=== PATIENT | male | born 1985 | race Caucasian/White ===

== ENCOUNTER 2025-01-06 01:11 | Day surgery (SDC) | payer OTHER, SELFPAY ==
[2024-12-24 14:37] VITALS: BMI 33.9
--- NOTE | 2024-12-24 14:44 | PC.NURSE ---
Patient instructed to bring spinal cord stimulator remote [facility] has started construction of its new state of the art ER which will open Spring 2026. With this, we anticipate parking may be a challenge for some our surgical patients and families. Parking spaces are limited but are available for all Surgical, obstetrics, and ER patients sharing this lot. If you arrive and find you are having a hard time finding a parking space, please note that we understand the challenges, please drive around the hospital and park near Hospital Entrance 1. When you enter this entrance, you can ask a volunteer to direct or take you back to the surgical waiting area to check in. We appreciate everyone?s understanding of these expected challenges while we build for your future. Report to the Outpatient Waiting Room, entrance under the green pavilion located off [address], at time _0630 on date _01/06/25 . Planned Procedure Time: __0830 .? Time changes happen often and if your time is changed the preop area will call you the afternoon before. - You and your visitor will be asked to self-screen and do not enter if you have any COVID symptoms. Please call surgeon if you need to reschedule. - A mask is optional within the hospital at this time. Patients may have clear liquids (water, carbonated beverages, clear teas, apple juice) until 3 hours prior to surgery with a maximum of 20 ounces. - No food from midnight until time of surgery and no smoking, or chewing tobacco (or any form of nicotine). No chewing gum, candy or mints. - Infants may have breast milk until 4 hours before surgery, formula 6 hours prior to surgery. - Children will be allowed to drink immediately following surgery.? If applicable, please bring a bottle or sippy cup to assist with drinking. Juice, water, soda, and popsicles are readily available.? For infants on formula, please bring formula the day of surgery.? Pacifiers are allowed. Take only the following medications with a SIP of water on the morning of surgery: _Lyrica PRN DO NOT STOP ANY OF YOUR OTHER PRESCRIPTION MEDICATIONS PRIOR TO SURGERY EXCEPT THE FOLLOWING Hold all vitamins and supplements for 3 days per anesthesiologist. Medications to discontinue per physician ____N/A Date to take last dose___N/A Please no make-up, nail ivorian, hairspray, perfume, deodorant, or body powder the day of surgery.? No jewelry (including any body piercings) or valuables the day of surgery, leave them at home.? Please take a shower or bath the night before, or the morning of, surgery with an antibacterial soap.? Wear comfortable, loose fitting clothing.? Children are encouraged to wear pajamas. - Jewelry must be removed prior to entering the operating room.? Rings and piercings that are not removed may be cut off. - The hospital will not accept responsibility for valuables.? - Please leave all valuables, including medications, at home the day of surgery. If you are going home after surgery, a licensed scoop driver must drive you home.? - NO public transportation without another adult if you receive anesthesia. - We recommend that an adult stay with you for 24 hours following discharge. - We also recommend that you do not drive, make important decision, drink alcoholic beverages, or take any drugs that were not prescribed by your health care provider for at least 24 hours after your discharge time. For Pediatric surgeries, we recommend two adults accompany the child home. Follow any additional instructions given to you from your surgeon. Telephone instructions given to Ines and asked if any additional questions and then verbalized understanding. Patient advised to call surgeon office or pre surgery nurse liaison [phone] if any additional questions.
[2025-01-06] VITALS (7 sets, daily range): BP systolic 96–127; BP diastolic 57–77; PULSE 50–70; RESP 12–16; TEMP 36.1–36.2; O2SAT 97–100
--- OUTSIDE RECORDS SUMMARY | 2025-01-06 01:14 | XMS_ITS | Clinical Summary ---
Author Organization [facility] Address [address] [place] [address] Care Team Providers Care Cross Tie Cutter Name Role Phone Unavailable Primary Care Provider Unavailabl e Allergies No known active allergies Medications DULoxetine (Cymbalta) 30 mg Capsule, Delayed Release(E.C.) Take 1 Capsule (30 mg) by mouth 2 times daily. 60 Capsule 09/02/2024 Active Encounters Date Type Department Care Team Description 12/31/2024 External Device Data [facility] ABSTRACTION Provider, Abstract 12/30/2024 External Device Data [facility]STRACTION Provider, Abstract 12/23/2024 External Device Data [facility]STRACTION Provider, Abstract from Last 3 Months Social History Tobacco Use Types Packs/Day Years Used Date Smoking Tobacco: Never Assessed Sex and Gender Information Value Date Recorded Sex Assigned at Not on file Legal Sex Male 11:00 AM CDT Gender Identity Not on file Sexual Orientation Not on file Plan of Treatment Health Maintenance Due Date Last Done Comments DTAP/TDAP/TD VACCINES (1 - Tdap) 2003 HEPATITIS B VACCINES (1 of 3 - 19+ 3-dose series) 04/05 HPV VACCINES (1 - 3-dose SCDM series) 2011 INFLUENZA VACCINE (#1) 2024 Insurance [employer] (INTERNAL) [facility] [employer] [facility]
--- OUTSIDE RECORDS SUMMARY | 2025-01-06 01:14 | XMS_ITS | Clinical Summary ---
Author Organization [facility] Address [address] [place] [address] Care Team Providers Care Infrastructure Security Architect Name Role Phone Provider, No Pcp Primary Care Provider Unavailab le Source Comments [facility],non-owned Affiliates and Associated Physician Practices is amultiple site organization consisting of ambulatory clinics and hospital sitesin [place], [place], [place] and [place]. This disclosure is being madepursuant to the Care Everywhere program and may not contain all information available regarding this patient. Last updated 17.[facility] Health Encounters Date Type Department Care Team Description 12/19/2024 Travel 10/10/2024 Travel 10/06/2024 11:12 AM CDT - 10/06/2024 11:59 PM CDT Hospital Encounter [facility] Imaging Services - Radiology [address] [place] [address] Keaton Bond MD Discharge Disposition: Home or Self Care from Last 3 Months Social History Tobacco Use Types Packs/Day Years Used Date Smoking Tobacco: Never Assessed Sex and Gender Information Value Date Recorded Sex Assigned at Not on file Legal Sex Male 11:00 AM CDT Gender Identity Not on file Sexual Orientation Not on file Plan of Treatment Upcoming Encounters Date Type Department Care Team (Late st Contact Info) Description 02/17/2025 12:20 PM DISTRIBUTION COORDINATOR Appointment [facility] Imaging Services - MRI [address] [place] [address] [place] [address] [place] [address] Health Maintenance Due Date Last Done Comments LIPID TESTING 1984 HIV SCREENING 1999 HEPATITIS C SCREENING 04/11/2002 DTAP/TDAP/TD VACCINES (1 - Tdap) 2003 HEPATITIS B VACCINE (1 of 3 - 19+ 3-dose series) 2003 HPV VACCINE (1 - 3-dose SCDM series) 2011 DEPRESSION SCREENING 03/05/2024 COVID-19 VACCINE ( season) 2024 12/16/2020, 11/18/2020, 04/07/2020 INFLUENZA VACCINE (#1) 2024 2, 12/30/2020, 02/12/2020, Additional history exists ZOSTER VACCINE (1 of 2) 2034 HIB VACCINE Aged Out No longer eligi ble based on patient's age to complete this topic MENINGOCOCCAL (Group B) VACCINE SHARED DECISION-MAKING Aged Out No longer eligible based on patient's age to complete this topic MENINGOCOCCAL GROUPS A/C/Y/W VACCINE Aged Out No longer eligible based on patient's age to complete this topic PNEUMOCOCCAL VACCINE Aged Out No long er eligible based on patient's age to complete this topic Procedures Procedure Name Priority Date/Time Associated Diagnosis Comments XR LUMBAR SPINE 2 OR 3VW Routine 10/06/2024 11:36 AM CDT Postlaminectomy syndrome, lumbar region XR THORACIC SPINE 3VW Routine 10/06/2024 11:36 AM CDT Postlaminectomy syndrome, thoracic region from Last 3 Months Results * XR Lumbar Spine 2 or 3Vw (10/06/2024 11:36 AM CDT) Anatomical Region Laterality Modality Spine Computed Radiogr aphy 10/06/2024 1:03 PM CDT Narrative 10/06/2024 1:55 PM CDT PROCEDURE: XR LUMBAR SPINE 2 OR 3VW DATE/TIME OF EXAM: 10/06/2024 11:36 AM CLINICAL INFORMATION: None relevant/not provided if blank. Indication: M96.1: Postlaminectomy syndrome, lumbar region. Additional History: COMPARISON: None. FINDINGS/IMPRESSION: Three views of the lumbar spine show stimulator device overlying the left pelvis. Leads extend into the lumbar spine. Endplate degenerative changes are seen. There is intervertebral disc space narrowing of L5-S1. No fracture is present. Edited by La Dinero on 10/06/2024 1:05 PM > Interpreting Provider: Yordy Higuera MD on 10/06/2024 1:55 PM Procedure Note Yordy Higuera MD - 10/06/2024 PROCEDURE: XR LUMBAR SPINE 2 OR 3VW DATE/TIME OF EXAM: 10/06/2024 11:36 AM CLINICAL INFORMATION: None relevant/not provided if blank. Indication: M96.1: Postlaminectomy syndrome, lumbar region. Additional History: COMPARISON: None. FINDINGS/IMPRESSION: Three views of the lumbar spine show stimulator device overlying theleft pelvis. Leads extend into the lumbar spine. Endplate degenerativechanges are seen. There is intervertebral disc space narrowing of L5-S1. No fracture is present. Edited by La Dinero on 10/06/2024 1:05 PM > Interpreting Provider: Yordy Higuera MD on 10/06/2024 1:55 PM us Keaton Bond MD DIAGNOSTIC IMAGING ORDERAB LES Final Result * XR Thoracic Spine 3Vw (10/06/2024 11:36 AM CDT) Anatomical Region Laterality Modality Spine Computed Radiogr aphy 10/06/2024 1:04 PM CDT Narrative 10/06/2024 1:55 PM CDT PROCEDURE: XR THORACIC SPINE 3VW DATE/TIME OF EXAM: 10/06/2024 11:36 AM INDICATION: M96.1: Postlaminectomy syndrome, thoracic region. Additional History: COMPARISON: None. FINDINGS: Stimulator leads are seen in the thoracic spine. Mild endplate degenerative changes are present. There is no acute fracture or subluxation. Edited by Sadie Julio on 10/06/2024 1:05 PM > Interpreting Provider: Yordy Higuera MD on 10/06/2024 1:55 PM Procedure Note Yordy Higuera MD - 10/06/2024 PROCEDURE: XR THORACIC SPINE 3VW DATE/TIME OF EXAM: 10/06/2024 11:36 AM INDICATION: M96.1: Postlaminectomy syndrome, thoracic region. Additional History: COMPARISON: None. FINDINGS: Stimulator leads are seen in the thoracic spine. Mild endplatedegenerative changes are present. There is no acute fracture or subluxation. Edited by Sadie Julio on 10/06/2024 1:05 PM > Interpreting Provider: Yordy Higuera MD on 10/06/2024 1:55 PM us Keaton Bond MD DIAGNOSTIC IMAGING ORDERAB LES Final Result from Last 3 Months Insurance Care Teams Infrastructure Security Architect Relationship Specialty Start Date End Date Provider, No Pcp PCP - General 10/06/24
--- NOTE | 2025-01-06 06:56 | WPDANESEPPF ---
Anes - Initial Pre Proc Eval Procedure: Operation Date: 01/06/25 08:30 Proposed Procedures p Bilateral Vasectomy - Albert Navarro MD Date/Time: 01/06/25 06:56 Surgeon: Albert Navarro MD Pre Op Diagnosis: desired sterilization Patient Data Age: 39 Gender: M Height: 1.83 m Weight: 120.7 kg Allergies Allergy/AdvReac Type Severity Reaction Status Date / Time latex Allergy Intermediate Hives Verified 12/24/24 14:19 Home Medications ?Medication ?Instructions ?Recorded ?Confirmed ?Type magnesium 250 mg tablet 250 mg PO DAILY 12/24/24 12/24/24 History pregabalin 150 mg capsule (Lyrica) 150 mg PO BID PRN pain 12/24/24 12/24/24 History rizatriptan 10 mg tablet See Rx Instructions PO .COMPLEX 12/24/24 12/24/24 History Patient hx anesthesia problems: none Family hx anesthesia problems: none Results Review: All pre-operative results and documents have been reviewed as part of the pre-operative evaluation. [facility] Social History Social History Smoking packs per day: 1.5 Smoking cigarettes per day: 30.0 Years smoked: 10 Smoking pack-years: 15.00 Smoking status: Former smoker Smoking end date: 03/05/07 Alcohol intake: current Alcohol use details: 1 a month Substance use type: does not use Living arrangements: with family Spiritual care concerns: No Anes - Eval Final PreProcedure Day of Procedure 01/06/25 06:56 Patient weight: obese Heart: regular rate and rhythm Lungs: clear to auscultation Airway: Mallampati scale class II Neurological: alert and oriented Last oral intake: >/= 8 hours ASA classification: II Emergent: no Anesthetic plan: proceed Anesthesia type and monitoring: general LMA and standard monitoring Results Review: All pre-operative results and documents have been reviewed as part of the pre-operative evaluation. Informed Consent: The patient's anesthetic plan and its attendant risks and benefits were discussed with the patient/family/POA. Questions were solicited and answers provided to the satisfaction of the patient/family/POA.
[2025-01-06] MEDS: LACTATED RINGERS 1,000 ML 30 ML IV CONT (07:15)
--- NOTE | 2025-01-06 07:27 | WPDHPUPDATE1 ---
History and Physical Update Update Date/Time: 01/06/25 07:27 History and Physical has been reviewed, including an updated exam of the patient. There are NO changes in the patient's condition. Risks, benefits, and alternatives have been discussed and questions answered. Patient agrees to proceed with procedure.
--- NOTE | 2025-01-06 07:27 | PM.HPGS ---
History of Present Illness History of Present Illness Consent: Risks, benefits, and alternatives have been discussed and questions answered. Patient agrees to proceed with procedure. Chief complaint: desired sterilization Narrative: Leonard Monreal is a 39 year old male who was recently evaluated in urology clinic for vasectomy consultation. He desires permanent sterilization. He presents today for bilateral vasectomy in the OR. He denies any changes past his baseline and is ready for the procedure today. Review of Systems Review of Systems: Constitutional: No fevers or chills Eyes: No changes in vision HENT: No hearing loss Cardiovascular: No chest pain or palpitations Respiratory: No shortness of breath, cough, wheezing GI: No abdominal pain, nausea, or vomiting : No dysuria or difficulty urinating Heme: No easy bruising or bleeding Skin: No rash or itching MSK: No myalgias or joint pain Psych: No hallucinations Neuro: No lateralized numbness or tingling PMFSH Social History Social History Smoking packs per day: 1.5 Smoking cigarettes per day: 30.0 Years smoked: 10 Smoking pack-years: 15.00 Smoking status: Former smoker Smoking end date: 03/05/07 Alcohol intake: current Alcohol use details: 1 a month Substance use type: does not use Living arrangements: with family Spiritual care concerns: No Meds Home Medications and Allergies Home Medications ?Medication ?Instructions ?Recorded ?Confirmed ?Type magnesium 250 mg tablet 250 mg PO DAILY 12/24/24 12/24/24 History pregabalin 150 mg capsule (Lyrica) 150 mg PO BID PRN pain 12/24/24 12/24/24 History rizatriptan 10 mg tablet See Rx Instructions PO .COMPLEX 12/24/24 12/24/24 History Allergies Allergy/AdvReac Type Severity Reaction Status Date / Time latex Allergy Intermediate Hives Verified 12/24/24 14:19 Exam Narrative: General: Alert, no acute distress Head: Normocephalic, atraumatic Eyes: Extraocular movements intact Neck: No JVD, trachea midline Respiratory: Symmetric chest rise, nonlabored breathing on room air CV: Normal rate, adequate peripheral perfusion Abdomen: Soft, nontender, nondistended : Deferred Skin: Warm/dry Extremities: No peripheral edema, no cyanosis Neuro: No focal deficits Psych: Answers questions appropriately, appropriate mood Assessment and Plan Assessment and plan (1) Encounter for sterilization: Code(s): Z30.2 - Encounter for sterilization Status: Acute Plan 39yM who desires permanent sterilization - To OR for bilateral vasectomy - Risks, benefits, alternatives reviewed. Patient is amenable to proceed - Anticipate discharge home thereafter
[2025-01-06] MEDS: ceFAZolin 3 GM/D5W 100 ML 100 ML IVPB (08:23)
--- NOTE | 2025-01-06 08:40 | S_PTH ---
PATIENT: Leonard Monreal LOC: [facility] U#:[id number] AGE/SX: 39/M ROOM: RE01/06/[address]: Albert Navarro MD : 1985 BED: DIS: 01/06/2025 SPEC #: [id number] RECD: 01/06/25 09:25 STATUS: FRANTZ REQ #: [id number] YANICK: 01/06/25 08:[address]: Albert Navarro DEPT: [facility] Surgical RECD BY: Lavern Smith ENTERED: 01/06/25 09:26 SP TYPE: Surgical OTHR DR: ROOF FOREMAN PHYSICIAN Tissues: A - Vas Deferens B - Vas Deferens Procedures: Gross Exam Level 1
[2025-01-06] MEDS: BUPivacaine HCL 0.25% PF 10 ML VIAL INFILTRATE (08:44)
[2025-01-06] MEDS: BACITRACIN OINTMENT 15 GM TUBE 1 APPLIC TOPICAL (08:51)
--- NOTE | 2025-01-06 08:59 | W.PM.PROC2 ---
Procedure Note - Detailed Date of Procedure 01/06/25 Pre-op Diagnosis desired sterilization Post-op Diagnosis Same Procedure Performed Bilateral vasectomy Surgeon Albert Navarro MD Anesthesia General Description of Procedure Under sterile conditions, 0.25% plain marcaine was administered to provide local skin anesthesia and a regional vasal block. Next, the no-scalpel vasectomy approach was used and Rojelio forceps were used to spread the skin open the right upper hemiscrotum. A clamp was used to grasp the right vas deferens, which was brought out through the skin opening. A scalpel was used to incise the sheath of the vas and Adson forceps were used to grasp the vas and deliver it out of the sheath. The vas was dissected free of any attachments and a clamp was placed on either side of the freed vas. Next, a 1-2 cm segment of the right vas was cut and collected for pathologic analysis. Thermal cautery was used to cauterize both free ends of the cut vas and a 2-0 silk tie was used to occlude both free ends of the vas underneath both clamps. Attention was then drawn to the left hemiscrotum and the left vas deferens was excised in the exact same fashion. The area was then inspected thoroughly and excellent hemostasis was confirmed. The vas was then reduced back into the scrotum bilaterally. A single horizontal mattress suture of 3-0 chromic was used to close the skin entrance sites on the bilateral upper hemiscrotum. Antibiotic ointment was applied to the entrance sites and gauze was placed over top. The patient tolerated the procedure well and there were no complications noted.
== END 2025-01-06 09:58 | disposition home or self-care (01) ==
PROVIDERS: Visit Provider Urology
PROC: (CPT 55250; principal; 2025-01-06 08:30)
DX: Z30.2 Encounter for sterilization (principal); E66.9 Obesity, unspecified; Z68.36 Body mass index [BMI] 36.0-36.9, adult; Z98.890 Other specified postprocedural states; Z87.891 Personal history of nicotine dependence
CPT/HCPCS: 55250; 88300; J0690; J1100; J2003; J2250; J2405; J2704; J3010; J7120